=== PATIENT | male | born 1940 | race Caucasian/White ===

== ENCOUNTER 2016-10-17 11:33 | Outpatient (CLI) | payer MEDICARE, OTHER ==
[~2016-10-17] VITALS: Ht 175.3 cm; Wt 100.5 kg
--- NOTE | ~2016-10-17 | HEMODYNAMI ---
PATIENT:MARIN RAMIREZ MEDICAL RECORD: [id number] : 40 LOCATION:[facility] ADMISSION DATE: 10/17/16 Generatedon:10/17/201615:08 Patient name: MARIN RAMIREZ Patient #: [id number] SSN: DO B: 1940 Date of study: 10/17/2016 Page: Of Hemodynamic Procedure Report Patient Data Patient Demographics Procedure consent was obtained First Name: MARIN Gender: Male Last Name: ASHLEY : 1940 [facility] Initial: RICHMOND Age: 76 year(s) Patient #: [id number] Race: Additional ID: [id number] Contact details [address]: [address] [place] [address] State: [place] City: [place] Zip code: [address] Past Medical History Allergies Allergen Reaction Date Comments Reported Codeine 10/17/2016 Other allergy 10/17/2016 amlodipine, pentazocine Admission Admission Data Admission Date: 10/17/2016 Admission Time: 11:33 Admit Source: Other Lab Results Lab Result Date: 10/17/2016 Lab Result Time: 0:00 Biochemistry Name Units Result Min Max Creatinine mg/dl 1.5 --(----)-* 0.6 1.3 CBC Name Units Result Min Max Hemoglobin g/dl 13.9 --(*---)-- 13.5 17.5 Procedure Procedure Types Cath Procedure Diagnostic Procedure C [facility] w/Coronaries Procedure Description Procedure Date Procedure Date: 10/17/2016 Procedure Start Time: 14:47 Procedure End Time: 15:07 Procedure Staff Name Function Meek Cespedes MD Performing Physician Aiyana Villarreal RT Scrub Harish Medina RN Nurse Lore Andino RT Monitor Albert Angel RN Svp Chief Marketing Officer Procedure Data Cath Procedure Fluoroscopy Diagnostic fluoroscopy Total fluoroscopy Time: time: 2:03 min 2:03 min Contrast Material Contrast Material Type Amount (ml) Isovue 300 68 Entry Location Entry Primary Successful Side Size Upsize Upsize Entry Closure Succes sful Closure Location (Fr) 1 (Fr) 2 (Fr) Remarks Device Remarks Femoral Right 5 Fr Exoseal artery Estimated blood loss: 5 ml Diagnostic catheters Device Type Used For End Catheter Placement Cordis 5Fr JL 4.0 Left Coronary Catheter (MP) Angiography Cordis 5Fr 3DRC Catheter Right Coronary (MP) Angiography Cordis 5Fr Pigtail LV Angiography Catheter (MP) Procedure Complications No complications Procedure Medications Medication Administration Route Dosage Oxygen NC 2 l/min Benadryl I.V. 50 mg Lidocaine 2% added to field 20 Heparin Flush Bag added to field 2 bags (1000units/500ml NS) 0.9% NaCl I.V. 100 ml/hr Versed I.V. 2 mg Fentanyl I.V. 100 mcg Versed I.V. 1 mg Fentanyl I.V. 50 mcg Lopressor I.V. 5 mg Fentanyl I.V. 50 mcg Versed I.V. 1 mg Hemodynamics Rest Heart Rate: 100 (bpm) Pressure Samples Time Site Value (mmHg) Purpose Heart Use Rate(bpm) 14:59 LV 197/33,34 EDP 100 Gradients Valve Time Site Site Mean SEP/DFP Peak To Heart Use 1 2 (mmHg) (sec/min) Peak Rate (mmHg) (bpm) Aortic 15:00 LV AO 95 Snapshots Pre Cath Intra NCS Post Cath Vital Signs Time Heart Resp SPO2 NIBP (mmHg) Rhythm Pain Sedation Rate (ipm) (%) Status Level (bpm) 14:38:00 81 16 100 191/107(158) NSR 0 (11) 10(A) , No pain 14:42:27 94 20 97 181/99(144) NSR 0 (11) 10(A) , No pain 14:46:49 96 18 95 180/102(153) NSR 0 (11) 10(A) , No pain 14:51:11 96 14 94 191/106(144) NSR 0 (11) 9(A) , No pain 14:56:37 106 14 96 167/101(131) NSR 0 (11) 9(A) , No pain 15:00:53 94 26 98 182/97(143) NSR 0 (11) 9(A) , No pain 15:05:15 94 16 98 185/99(140) NSR 0 (11) 10(A) , No pain Medications Time Medication Route Dose Verified Delivered Reason Notes Effe ctiveness by by 14:34:38 Oxygen NC 2 Meek Buffie used for l/min Harold Medina parts manager 14:34:48 Benadryl I.V. 50 mg Meek Buffie used for [facility] parts manager 14:34:57 Lidocaine 2% added 20ml Meek Meek for local to vial [facility] anesthetic field MD JANG 14:35:05 Heparin Flush added 2 Meek Meek used for Bag to bags [facility] procedure (1000units/500ml field MD JANG NS) 14:35:17 0.9% NaCl I.V. 100 Meek Buffie Per ml/hr Harold Medina RN physician 14:41:00 Versed I.V. 2 mg Meek Buffie for Rubina Medina RN sedation 14:41:07 Fentanyl I.V. 100 Meek Buffie for mcg Harold Medina RN sedation 14:49:33 Versed I.V. 1 [facility] 14:49:37 Fentanyl I.V. 50 Meek Buffie for mcg Rubina Medina RN sedation 14:52:05 Fentanyl I.V. 50 Meek Buffie for mcg Harold Medina RN sedation 14:57:14 Lopressor I.V. 5 mg Meek Buffie Per Harold Medina RN physician 15:02:25 Versed I.V. 1 mg Meek Buffie for Rubina Medina RN sedation Procedure Log Time Note 14:25:05 Admit Source: Other 14:25:09 Albert Angel RN sent for patient. Start room use. 14:25:11 Time tracking: Regular hours 14:25:15 Plan of Care:Hemodynamics will remain stable., Cardiac rhythm will remain stable., Comfort level will be maintained., Respiratory function will remain adequate., Patient/ family verbilizes understanding of procedure., Procedure tolerated without complication., Recovers from procedure without complications.. 14:28:53 Patient received from Outpatients to CCL 1 Alert and oriented. Tansferred to table in Supine position. 14:28:54 Warm blankets applied, and ainsley hugger turned on for patient comfort. 14:28:55 Correct patient and procedure confirmed by team. 14:28:56 Signed procedure consent form obtained from patient. 14:28:59 ECG and BP/O2 sat monitors applied to patient. 14:29:00 Full Disclosure recording started 14:34:38 Oxygen 2 l/min NC was given by Harish Medina RN; used for procedure; 14:34:48 Benadryl 50 mg I.V. was given by Harish Medina RN; used for procedure; 14:34:57 Lidocaine 2% 20ml vial added to field was given by Meek Cespedes MD; for local anesthetic; 14:35:05 Heparin Flush Bag (1000units/500ml NS) 2 bags added to field was given by Meek Cespedes MD; used for procedure; 14:35:17 0.9% NaCl 100 ml/hr I.V. was given by Harish Medina RN; Per physician; 14:36:52 Vital chart was started 14:36:55 Rhythm: sinus rhythm 14:37:14 H&P Date Dictated: 10/12/2016 Within 30 days and on chart., H&P Addendum completed by physician on day of procedure. (MUST COMPLETE FOR ALL OUTPATIENTS). 14:37:16 Pre-procedure instructions explained to patient. 14:37:21 Pre-op teaching completed and patient verbalized understanding. 14:37:23 Family in waiting room. 14:37:25 Patient NPO since Midnight. 14:37:32 Patient allergic to Codeine 14:38:05 Patient allergic to Other allergyamlodipine, pentazocine 14:38:08 Is the patient allergic to Iodine/contrast media? Yes. 14:38:14 Is patient on blood thinner?No 14:38:16 Patient diabetic? Yes. 14:38:18 If diabetic: On Metformin? No 14:38:22 Previous problem with sedation/anesthesia? No ? 14:38:23 Snore? Yes 14:38:25 Sleep apnea? Yes 14:38:26 Deviated septum? No 14:38:27 Opens mouth fully? Yes 14:38:27 Sticks out tongue? Yes 14:38:29 Airway obstruction? No ? 14:38:31 Dentures? No ? 14:38:34 Pre procedure: right dorsailis pedis pulse 2+ Normal; easily identifiable; not easily obliterated 14:38:37 Patient pain scale 0/10 ?. 14:38:43 IV patent on arrival in right wrist with 0.9% NaCl at [facility]. 14:39:23 Lab Result : Creatinine 1.5 mg/dl 14:39:23 Lab Result : Hemoglobin 13.9 g/dl 14:39:30 Lab results completed and on chart. 14:39:32 Right groin area was prepped with chlora-prep and draped in sterile fashion 14:39:33 Alarms reviewed by R. N. 14:39:34 Sharps counted by scrub and verified by R.N. 14:39:37 Use device set Femoral Dx 14:39:38 Bag Decanter opened to sterile field. 14:39:38 Acist Syringe opened to sterile field. 14:39:39 Cardinal Cath Pack opened to sterile field. 14:39:39 Terumo 5Fr [place] Sheath opened to sterile field. 14:39:40 St Ha 260cm J .035 wire opened to sterile field. 14:39:41 Acist Hand Control opened to sterile field. 14:39:41 Acist Manifold opened to sterile field. 14:39:42 Cordis Infinity 5Fr Multipack catheter opened to sterile field. 14:39:43 Tegaderm 4 x 4 opened to sterile field. 14:39:53 Final Timeout: patient, procedure, and site verified with staff and physician. All members of the team are in agreement. 14:39:55 Right groin site verified by team. 14:39:57 Physical assessment completed. ASA score P 2 - A patient with mild systemic disease as per Meek Cespedes MD. 14:40:01 Sedation plan: IV Moderate Sedation Versed, Fentanyl 14:41:00 Versed 2 mg I.V. was given by Harish Medina RN; for sedation; 14:41:07 Fentanyl 100 mcg I.V. was given by Harish Medina RN; for sedation; 14:45:10 Zero performed for pressure channel P1 14:46:41 Procedure started. 14:47:08 Local anesthetic to right femoral artery with Lidocaine 2% by Meek Cespedes MD.INITIAL ACCESS ONLY 14:49:33 Versed 1 mg I.V. was given by Harish Medina RN; for sedation; 14:49:37 Fentanyl 50 mcg I.V. was given by Harish Medina RN; for sedation; 14:52:05 Fentanyl 50 mcg I.V. was given by Harish Medina RN; for sedation; 14:54:57 A 5 Fr sheath was inserted into the Right Femoral artery 14:55:03 A Cordis 5Fr JL 4.0 Catheter (MP) was advanced over the wire and used for Left Coronary Angiography. 14:57:14 Lopressor 5 mg I.V. was given by Hraish Medina RN; Per physician; 14:58:10 Catheter removed. 14:58:16 A Cordis 5Fr 3DRC Catheter (MP) was advanced over the wire and used for Right Coronary Angiography. 14:58:19 Catheter removed. 14:58:57 A Cordis 5Fr Pigtail Catheter (MP) was advanced over the wire and used for LV Angiography. 14:59:42 LV gram done using SHEARER 14:59:43 LV hemodynamics recorded. 14:59:46 Injector settings: Ml/sec: 5, Volume: 15, 14:59:59 EF : 55 % 15:00:11 Catheter removed. 15:00:25 Cordis 5Fr Exoseal opened to sterile field. 15:00:41 Sheath removed intact; hemostasis achieved with Exoseal to the Right Femoral artery. 15:00:45 Procedure ended.(Physican Out) 15:01:24 Fluoroscopy time 2:03 minutes. 15:02:25 Versed 1 mg I.V. was given by Harish Medina RN; for sedation; 15:03:47 Contrast amount:Isovue 300 68ml. 15:03:55 Insertion/operative site no bleeding no hematoma. 15:03:57 Post-op/insertion site Right Femoral artery dressed using a 4 x 4 and Tegaderm. 15:04:00 Post right femoral artery:stable, clean and dry 15:04:04 Post Procedure Pulses reassessed and unchanged 15:04:13 Post-procedure physical assessment completed. ASA score P 2 - A patient with mild systemic disease as per Meek Cespedes MD. 15:04:15 Post procedure rhythm: unchanged. 15:04:19 Estimated blood loss: 5 ml 15:04:21 Post procedure instruction explained to patient.Patient verbalizes understanding. 15:04:21 Patient needs reinforcement of post procedure teaching. 15:04:28 Procedure Complication : No complications 15:04:31 See physician's report for complete and final results. 15:04:47 Procedure and supply charges have been captured, reviewed, submitted and are correct. 15:07:02 Vital chart was stopped 15:07:06 Report given to Outpatients. 15:07:10 Patient transfered to Outpatients with Stretcher. 15:07:15 Procedure ended. 15:07:15 Full Disclosure recording stopped 15:07:51 End room use (Document Last) Device Usage Item Name Manufacture Quantity Catalog Hospital Part Current Minimal Lo t# / Number Charge Number Stock Stock Serial# Code Bag Microtek 1 [id number] 5 Decan[employer] Acist Acist 1 68784 293865 157313 813763 20 Syringe [employer] Inc Cardinal Cardinal 1 [id number] 325351 26753 577308 5 Cath Pack Health Terumo Terumo 1 [id number] 918506 302599 200181 [address] [facility] Ha 1 632609 515146 484966 112354 30 260cm J .035 wire Acist Acist 1 34747 795665 930767 095970 5 Hand Medical [employer] Systems Inc Acist Acist 1 76876 559096 122345 837805 5 Manifold Medical [employer] Inc Cordis Cardinal 1 [id number] 282058 53227 842744 30 Infinity Health 5Fr Multipack catheter Tegaderm 3M 1 [id number] 038417 662793 080507 5 4 x 4 Cordis Cardinal 1 082147 5 5Fr JL Health 4.0 Catheter (MP) Cordis Cardinal 1 [id number] 5 5Fr 3DRC Health Catheter (MP) Cordis Cardinal 1 281115 5 5Fr Health Pigtail Catheter (MP) Cordis Cardinal 1 EX500 898482 809302 701844 10 5Fr Health Exoseal Signature Audit [place] Stage Time Signature Unsigned Intra-Procedure 10/17/2016 Lore 3:08:13 PM Counts RT(R) Signatures Monitor : Lroe Signature : Counts RT Date : Time : [id number] [place] [address]
[~2016-10-17 11:33] MED LIST: ALTACE10 MG PO; CARDURA8 MG PO; CELEXA10 MG PO; GLUCOPHAGE500 MG PO; GLUCOSAMINE HC500 MG PO; LIPITOR40 MG PO; LOW DOSE ASPIRI81 M1 PO; MAGNESIUM OXID250 MG PO; METOPROLOL TAR100 M1 PO; MULTI-DAY VITAM1 TAB PO; PROTONIX40 MG PO; SYNTHROID75 MCG PO; TRIGLIDE160 MG PO; VITAMIN D5000 UNIT PO
[2016-10-17 13:22] VITALS: BP 176/94; Ht 175.3 cm; Wt 100.5 kg
[2016-10-17 13:26] LABS: BASOPHILS 1.2 % (0.0-2.0); EOSINOPHILS 11.4 % (0-7); HEMATOCRIT 42.4 % (42.0-54.0); HEMOGLOBIN 13.9 g/dL (13.5-17.5); IMMATURE GRANULOCYTES 0.2 % (0-5); LYMPHOCYTES 27.3 % (15-50); MCH 29.7 pg (26.0-34.0); MCHC 32.8 g/dL (31.0-37.0); MCV 90.6 fL (80.0-100.0); MEAN PLATELET VOLUME 10.8 fL (7.4-10.4); MONOCYTES 10.8 % (2-11); NEUTROPHILS 49.1 % (40-80); PLATELET COUNT 182 10x3/uL (130-400); RBC 4.68 10x6/uL (4.20-6.10); RDW 14.7 % (11.5-14.5)
[2016-10-17 13:41] LABS: ANION GAP 16.4 mmol/L (8-16); CALCIUM 9.9 mg/dL (8.5-10.1); CARBON DIOXIDE 24.8 mmol/L (21.0-32.0); CREATININE - SERUM 1.5 mg/dL (0.6-1.3); POTASSIUM - SERUM 4.2 mmol/L (3.5-5.1)
--- NOTE | 2016-10-17 14:06 | NUR ---
1400 PATIENT READY FOR PROCEDURE, CALLED ELEVATED BUN AND CREAT LEVELS TO BIOMEDICAL REPAIR TECHNICIAN.
--- NOTE | 2016-10-17 17:40 | NUR ---
PATIENT AMBULATES TO BATHROOM TO VOID LARGE AMOUNT IN TOILET, RIGHT GROIN DRESSING C/D/I, AREA CONTINUES TO BE SOFT, NONEDEMATOUS AND SLIGHTLY TENDER. RIGHT HAND PIV DC'D WITH TIP INTACT. PATIENT DRESSING IN PERSONAL CLOTHES
--- NOTE | 2016-10-17 18:05 | NUR ---
DISCHARGE INSTRUCTIONS REVIEWED WITH PATIENT AND SPOUSE. DISCHARGED HOME VIA WHEELCHAIR TO PRIVATE VEHICLE WITH SPOUSE
--- NOTE | 2016-11-02 14:16 | OP ---
PATIENT NAME: MARIN RAMIREZ MEDICAL RECORD: [id number] :40 LOCATION:D.CAT ADMISSION DATE: SURGEON: TAYA FLETCHER MD DATE OF OPERATION: 10/17/2016 PROCEDURES: Left heart catheterization, selective coronary angiography, right femoral artery approach. CATHETERS: A 5-Turkmen sheath, 5/4 left and right Carissa, 5/4 pig. The procedure was tolerated. The patient returned to the keene, sheath was removed. ExoSeal device was placed. FINDINGS: Left ventriculography in the 30-degree SHEARER view: Normal wall motion, normal systolic function. CORONARY ANATOMY: Left main: Left main is free of disease. LAD: Free of disease in the diagonal system. CIRCUMFLEX: Free of disease in the marginal system. RIGHT CORONARY ARTERY: Has proximally placed stent, it was widely patent. No evidence of progression of ute disease. IMPRESSION: Widely patent stent, no progression of ute disease. Normal left ventricular systolic function. LVEDP was elevated during the procedure. I will add low dose diuretic and see if this helps ____ dyspnea. TRANSINT:[id number] Voice Confirmation ID: [id number] DOCUMENT ID: [id number] TAYA FLETCHER MD at 1416 CC: [id number] DICTATION DATE: 10/17/16 1511 COMMERCIAL SINGER: 10/17/16 1545 DEP CLI 10/17/16 [facility] [address] [place] [address]
== END 2016-10-17 18:05 | disposition home or self-care (01) ==
LOC: D.CATH 11:33
PROVIDERS: Internal Medicine Cardiovascular Disease
DX: I20.9 Angina pectoris, unspecified (principal)